=== PATIENT | female | born 1975 | race Caucasian/White ===

== ENCOUNTER 2016-07-15 17:42 | Emergency (ER) | payer SELFPAY ==
--- NOTE | 2016-07-16 00:40 | ER ---
ADMIT: 07/15/2016 RM/LOC: ER [facility] MR#: [id number] [address] [address] DAVID REZA [address] [place] [address] Emergency Room Report SEX: F AGE: 40 : 1975 DATE: 07/15/2016 TIME: 1742 hours. Please refer to my T-sheet for complete H and P. HISTORY OF PRESENT ILLNESS: Briefly, the patient is a 40-year-old who comes in with a facial rash. It started about 2 hours ago. She did put a new lotion on. No trouble breathing. No other complaints. PHYSICAL EXAMINATION: VITAL SIGNS: Stable. SKIN: She has an erythematous rash to her face. In the line where she prior put lotion on. LUNGS: Clear. HEENT: Throat is clear. EMERGENCY DEPARTMENT COURSE: I gave her prednisone 40 p.o. She is ready for discharge. ASSESSMENT: Acute localized allergic reaction, facial in nature most likely secondary to lotion. PLAN: Stop the lotion. Return if worse. Benadryl zymn-olm-iznrlod, prednisone 20 b.i.d. for [address]. Follow up with Dr. Mcclelland as needed. Sami Deshpande MD/ mariahl JOB #: [id number] CC: Rian Landrum MD, Attending Physician Ryland Mcclelland MD, Family Physician
== END 2016-07-15 19:05 | disposition home or self-care (01) ==
LOC: ER 17:42
DX: L23.89 Allergic contact dermatitis due to other agents (principal); T49.95XA Adverse effect of unspecified topical agent, initial encounter; F17.210 Nicotine dependence, cigarettes, uncomplicated; Z88.2 Allergy status to sulfonamides; Z98.890 Other specified postprocedural states

== ENCOUNTER 2016-08-01 13:10 | Emergency (ER) | payer SELFPAY ==
--- NOTE | 2016-08-09 21:25 | ER ---
ADMIT: 08/01/2016 RM/LOC: ER [facility] MR#: [id number] [address] [address] DAVID REZA [address] [place] [address] Emergency Room Report SEX: F AGE: 40 : 1975 DATE: 08/01/2016 ADDENDUM: This patient comes to the ER because she had a sudden onset of pain in the right side of her back at 4:00 in the morning. She does have a history of having kidney stones. The pain is in her flank area and goes down into her right butt cheek. She rates it as a 10/10. She states she is nauseated and vomiting. PHYSICAL EXAMINATION: This is an alert, 40-year-old, white female who has difficulty remaining still during the exam. Her pain is all in the right flank area. She does get in and out of sitting position without any difficulty. LABORATORY DATA: Urinalysis did have rbc's in it, negative for gross blood. Her CBC and BMP were normal. CT renal colic was negative for any ureteral stones. DIAGNOSIS: Right-sided flank pain. DISCUSSION: She was given tramadol and Valium. We will have her follow up with her primary in the next week if not better. Please see my T-sheet. REJI Aviles / Rian Landrum MD / modl JOB #: [id number] CC: Rian Landrum MD, Attending Physician UNKNOWN, Family Physician
== END 2016-08-01 18:00 | disposition home or self-care (01) ==
LOC: ER 13:10
DX: R10.9 Unspecified abdominal pain (principal); F17.210 Nicotine dependence, cigarettes, uncomplicated; Z87.442 Personal history of urinary calculi; Z88.1 Allergy status to other antibiotic agents; Z91.013 Allergy to seafood; Z88.2 Allergy status to sulfonamides

== ENCOUNTER 2016-08-02 08:02 | Emergency (ER) | payer SELFPAY ==
--- NOTE | 2016-08-09 21:25 | ER ---
ADMIT: 08/02/2016 RM/LOC: ER [facility] MR#: [id number] [address] [address] DAVID REZA [address] [place] [address] Emergency Room Report SEX: F AGE: 40 : 1975 DATE: 08/02/2016 See T-sheet for complete H and P. ADDENDUM: A 40-year-old female, who was seen in the Emergency Department yesterday for same complaints, comes back today stating she is not any better. She had an extensive workup yesterday with blood work and CT of the abdomen and renal colic study, which revealed no acute findings. She was sent home on tramadol and Valium, is coming back complaining of back pain. She did seem very sleepy when I examined her, so I ended up getting an ABG, which showed her PO2 was a little lower than I would expected, so I did get a CT angio of her chest, which showed no acute findings, no PE, but it did show a pulmonary nodule that will need followup and she is told about that nodule. As far as her workup today, she also had CBC, CMP, and urinalysis which were unremarkable. At this point, I believe she is having mechanical back pain and she has been coughing some, so she could have some muscle soreness, so she is told to continue her Valium and Ultram. She is also told to add on ibuprofen and given followup with Dr. Sebastian. She was given followup with Dr. Sebastian from her visit yesterday, so she was told she still needs to follow up with [facility] in 3-6 months for a repeat CT of her chest. Rian Landrum MD/ fredy JOB #: [id number] CC: Rian Landrum MD, Attending Physician Jose Alejandro Sebastian MD, Family Physician
== END 2016-08-02 10:40 | disposition home or self-care (01) ==
LOC: ER 08:02
DX: M54.5 Low back pain (principal); F17.210 Nicotine dependence, cigarettes, uncomplicated; Z87.442 Personal history of urinary calculi; Z88.2 Allergy status to sulfonamides; Z88.8 Allergy status to other drugs, medicaments and biological substances